=== PATIENT | female | born 1950 | race Caucasian/White ===

== ENCOUNTER → 2024-10-09 08:12 | Outpatient (REF) | payer MEDICARE, SELFPAY | LOC: RAD 08:12 | PROVIDERS: ATTENDING PHYSICIAN Podiatrist Foot & Ankle Surgery; FAMILY PHYSICIAN Family Medicine; OTHER PHYSICIAN Internal Medicine | DX: I73.89 Other specified peripheral vascular diseases (principal); Z01.818 Encounter for other preprocedural examination | CPT/HCPCS: 93922; 93925 ==

== ENCOUNTER → 2024-10-21 09:37 | Outpatient (REF) | payer MEDICARE, SELFPAY | LOC: HWRAD 09:37 | PROVIDERS: ATTENDING PHYSICIAN Podiatrist Foot & Ankle Surgery; FAMILY PHYSICIAN Family Medicine; REFERRING PHYSICIAN Internal Medicine | DX: M20.11 Hallux valgus (acquired), right foot (principal); M20.41 Other hammer toe(s) (acquired), right foot; Z01.811 Encounter for preprocedural respiratory examination | CPT/HCPCS: 71046; 73630 ==